=== PATIENT | male | born 1990 | race Caucasian/White ===

== ENCOUNTER 2019-08-25 08:21 | Emergency (ER) | payer OTHER ==
[2019-08-25 09:21] VITALS: BP 131/77
--- NOTE | 2019-08-25 09:59 | UC ---
Ear Complaint HPI - HPI Summary HPI Summary: 28-year-old male comes in with a chief complaint of 4-5 days of upper respiratory tract infection symptoms and 1 day of left ear pain. he is green rhinorrhea. Left ear pain was most severe this morning. The ear pain is decreased since he's been up and around. Taking a shower with steam did help with symptoms. Does feel chest congestion. His father had pneumonia recently. - History of Current Complaint Chief Complaint: UCEar Stated Complaint: EAR COMPLAINT,THROAT,COUGH Time Seen by Provider: 08/25/19 09:43 Pain Intensity: 1 - Allergies/Home Medications Allergies/Adverse Reactions: Allergies Allergy/AdvReac Type Severity Reaction Status Date / Time nickel Allergy Rash Verified 08/25/19 09:14 Home Medications: Home Medications Aspirin EC TAB* [Ecotrin EC Low Dose 81 MG*] 81 mg PO DAILY 08/25/19 [History Confirmed 08/25/19] D-Methorphan/PE/Acetaminophen [Vicks Dayquil Cold & Flu 10-5-325 mg/15Ml] 1 liq PO Q6H PRN 08/25/19 [History Confirmed 08/25/19] PMH/Surg Hx/FS Hx/Imm Hx Previously Healthy: Yes - AUTISM - Surgical History Surgical History: Yes Surgery Procedure, Year, and Place: Left Popliteal Entrapment Artery Bypass, [place], [place] - Family History Known Family History: Positive: Non-Contributory - Social History Alcohol Use: None Substance Use Type: None Smoking Status (MU): Never Smoked Tobacco Review of Systems All Other Systems Reviewed And Are Negative: Yes Constitutional: Positive: Other - SEE HPI Skin: Positive: Negative Eyes: Positive: Negative ENT: Positive: Sore Throat, Ear Ache, Nasal Discharge, Sinus Congestion Respiratory: Positive: Cough, Other - SEE HPI Cardiovascular: Positive: Negative Gastrointestinal: Positive: Negative Motor: Positive: Negative Neurovascular: Positive: Negative Musculoskeletal: Positive: Negative Neurological: Positive: Negative Psychological: Positive: Negative Is Patient Immunocompromised?: No Physical Exam Triage Information Reviewed: Yes Appearance: No Pain Distress, Well-Nourished, Ill-Appearing - MILD Vital Signs: Initial Vital Signs Temp 99.3 F 08/25/19 09:08 Pulse 102 08/25/19 09:08 Resp 18 08/25/19 09:08 BP 131/77 01/03/20 09:08 Pulse Ox 99 08/25/19 09:08 Vital Signs Reviewed: Yes Eye Exam: Normal Eyes: Positive: Conjunctiva Clear ENT: Positive: Pharyngeal erythema, Nasal congestion, Nasal drainage, TM bulging - LT, TM red - LT Neck: Positive: Supple Respiratory: Positive: Lungs clear, Normal breath sounds, No respiratory distress Cardiovascular: Positive: RRR Musculoskeletal: Positive: Strength Intact, ROM Intact Neurological: Positive: Alert, Muscle Tone Normal Psychological: Positive: Normal Response To Family, Age Appropriate Behavior Skin Exam: Normal Ear Complaint Course/Dx - Differential Dx/Diagnosis Provider Diagnosis: Left otitis media, Sinusitis Discharge ED - Sign-Out/Discharge Documenting (check all that apply): Patient Departure All imaging exams completed and their final reports reviewed: No Studies - Discharge Plan Condition: Stable Disposition: HOME Prescriptions: Amoxicillin/Clavulanate SUSP* [Augmentin SUSP*] 880 mg PO BID #220 ml Fluticasone NASAL SPRAY 50MCG* [Flonase NASAL SPRAY 50MCG*] 2 spray BOTH NARES DAILY #1 btl Patient Education Materials: Sinusitis (ED), Ear Infection (ED) Referrals: Tyrone Barreto MD [Primary Care Provider] - Additional Instructions: FOLLOW UP WITH YOUR DOCTOR IF NOT COMPLETELY IMPROVED. GET REEVALUATED SOONER IF NOT IMPROVING OR WORSE OR ANY QUESTIONS OR CONCERNS. - Billing Disposition and Condition Condition: STABLE Disposition: Home
== END 2019-08-25 10:06 | disposition home or self-care (01) ==
LOC: UCCORT 08:21
DX: H66.92 Otitis media, unspecified, left ear (principal); J32.9 Chronic sinusitis, unspecified; F84.0 Autistic disorder; Z91.09 Other allergy status, other than to drugs and biological substances; Z79.82 Long term (current) use of aspirin
CPT/HCPCS: 99202; G0463

== ENCOUNTER 2019-09-01 08:59 | Emergency (ER) | payer OTHER ==
[2019-09-01 09:19] VITALS: BP 136/86
--- NOTE | 2019-09-01 10:09 | UC ---
Ear Complaint HPI - HPI Summary HPI Summary: 28-year-old male who was diagnosed with a sinus infection and early left otitis media one week ago and was started on Augmentin. He states he continues to have loss of hearing in the left ear with mild earache, mild headache and still continues with head congestion. He was concerned the Augmentin was not strong enough for the ear infection and should be cleared up by now. He has 3 days left of the Augmentin. - History of Current Complaint Chief Complaint: UCEar Stated Complaint: BILATERAL EARS SEEN 08/25/19 Time Seen by Provider: 09/01/19 10:09 Hx Obtained From: Patient Onset/Duration: Gradual Onset Severity Initially: Moderate Severity Currently: Mild Pain Intensity: 4 Aggravating Factors: Nothing Alleviating Factors: OTC Meds Associated Signs/Symptoms: Positive: Hearing Loss, URI Symptoms - Allergies/Home Medications Allergies/Adverse Reactions: Allergies Allergy/AdvReac Type Severity Reaction Status Date / Time nickel Allergy Rash Verified 09/01/19 09:19 PMH/Surg Hx/FS Hx/Imm Hx Previously Healthy: Yes - Surgical History Surgical History: Yes Surgery Procedure, Year, and Place: Left Popliteal Entrapment Artery Bypass, 2004, [place] - Family History Known Family History: Positive: Non-Contributory - Social History Alcohol Use: None Substance Use Type: None Smoking Status (MU): Never Smoked Tobacco Review of Systems All Other Systems Reviewed And Are Negative: Yes ENT: Positive: Ear Ache Is Patient Immunocompromised?: No Physical Exam Triage Information Reviewed: Yes Appearance: Well-Appearing, No Pain Distress, Well-Nourished Vital Signs: Initial Vital Signs Temp 97.3 F 09/01/19 09:11 Pulse 92 09/01/19 09:11 Resp 12 09/01/19 09:11 BP 136/86 09/01/19 09:11 Pulse Ox 98 09/01/19 09:11 Vital Signs Reviewed: Yes Eyes: Positive: Conjunctiva Clear ENT: Positive: Pharynx normal, TM bulging - Right TM is pearly [place]field with good landmarks and light reflex, left tympanic membrane is pearly-mayfield with moderate landmarks and has some clear fluid behind the membrane., Uvula midline Neck: Positive: Supple, Nontender, No Lymphadenopathy Respiratory: Positive: Lungs clear, Normal breath sounds, No respiratory distress, No accessory muscle use Cardiovascular: Positive: RRR, No Murmur, Pulses Normal, Brisk Capillary Refill Musculoskeletal Exam: Normal Neurological Exam: Normal Psychological Exam: Normal Skin Exam: Normal Ear Complaint Course/Dx - Course Course Of Treatment: This patient mostly needed some reassurance that he was doing all the right things for his present illness. He has 3 days left of the Augmentin I encouraged him to finish that. He can increase his Flonase to 2 sprays in each nostril once a day and to continue his [id number] cold medicines. He is to follow-up with [facility] if any worsening symptoms over the next 5-6 days. He is going out of town and he was worried that perhaps the antibiotic given was not strong enough to treat the possible ear infection that he had one week ago. Again reassurance was given and all patient questions were answered. - Differential Dx/Diagnosis Provider Diagnosis: Serous otitis media Discharge ED - Sign-Out/Discharge Documenting (check all that apply): Patient Departure All imaging exams completed and their final reports reviewed: No Studies - Discharge Plan Condition: Good Disposition: HOME Patient Education Materials: Serous Otitis Media (ED) Referrals: [facility] [Outside] No Primary Care Phys,NOPCP [Primary Care Provider] - Additional Instructions: Increase your Flonase to 2 sprays in each nostril daily for one week then decrease to 1 spray in each nostril daily for one week. Continue the Over the counter medications you are presently taking. Follow up at [facility] if no improvement in 5-6 days. - Billing Disposition and Condition Condition: GOOD Disposition: Home
== END 2019-09-01 10:22 | disposition home or self-care (01) ==
LOC: UCCORT 08:59
DX: H65.92 Unspecified nonsuppurative otitis media, left ear (principal); Z91.09 Other allergy status, other than to drugs and biological substances
CPT/HCPCS: 99211; G0463